=== PATIENT | female | born 1960 ===

== ENCOUNTER → 2021-07-21 | Outpatient (CLI) | payer BC ==
--- NOTE | 2021-07-22 12:13 | RAD ---
BILATERAL DIGITAL SCREENING 2-D AND 3-D MAMMOGRAM INDICATION: Routine screening. COMPARISON: March 08, 2018 outside images Interpretation was made using CAD. FINDINGS: Breast Density: The breasts are heterogeneously dense, which may obscure small masses. RIGHT BREAST: There are stable asymmetries scattered throughout the breasts, given the difference in technique and positioning. There are multiple oval tiny circumscribed masses that have waxed and wane d. Given the multiplicity and appearance these are considered benign. No suspicious masses, calcifica tions or areas of architectural distortion are seen. LEFT BREAST: There are stable asymmetries. There are multiple oval tiny circumscribed masses that hav e waxed and waned. One contains coarse calcifications, consistent with an involuting fibroadenoma. No suspicious masses, calcifications or areas of architectural distortion are seen. IMPRESSION: 1. No imaging evidence of malignancy. ASSESSMENT: BI-RADS 2. Benign findings RECOMMENDATION: Routine annual screening mammogram. The facility will notify the patient of the results via mail. Patient information will be entered int o the mammography reminder system with a target recall date for the next mammogram. A reminder letter will be generated by the facility. Electronically signed by: Kelly Chen MD (07/22/2021 12:10 PM) [id number]
== END ==
LOC: MAMMO 08:23
PROVIDERS: ATTEND Family Medicine
DX: Z12.31 Encounter for screening mammogram for malignant neoplasm of breast (principal)
CPT/HCPCS: 77063; 77067